=== PATIENT | female | born 1960 | race Caucasian/White ===

== ENCOUNTER → 2024-02-18 12:14 | Outpatient (REF) | payer BC, SELFPAY | LOC: HWRAD 12:14 | PROVIDERS: ATTENDING PHYSICIAN Family Medicine | DX: M81.0 Age-related osteoporosis without current pathological fracture (principal); Z12.31 Encounter for screening mammogram for malignant neoplasm of breast | CPT/HCPCS: 77063; 77067; 77080 ==

== ENCOUNTER 2024-06-27 16:13 | Emergency (ER) | payer BC, SELFPAY ==
[2024-06-27 16:18] VITALS: BP 160/94
--- NOTE | 2024-06-27 16:21 | ED.GENMED ---
ED Provider Triage
<Zeeshan Noel Jr., PA-C - Last Filed: 06/27/24 16:23>
-
Patient seen by provider in Triage?: Seen in Triage
Attestation: A medical screening examination has been initiated by a qualified medical provider. Based on the assessment performed at this time, it has been determined that an emergent medical condition may exist and the patient has been informed
that further medical evaluation and possible additional diagnostic testing may be needed.
HPI: Intermittent chest pain describes a pinching to her central chest over the past 4 days or so to mild associated nausea no vomiting no diaphoresis no shortness of breath associated. No known history of heart disease. Labs troponin chest x-ray
ordered for further assessment.
GENERAL: Alert , in no apparent distress
EYE: No visual abnormalities.
NECK: Trachea midline
ENT: No visible abnormalities.
LUNGS: No acute respiratory distress
NEUROLOGICAL: Alert and oriented
SKIN: Skin intact. No visible changes.
MUSCULOSKELETAL: Moving extremities normally
PSYCH: Normal and appropriate interaction.
This is a medical evaluation conducted in person to initiate diagnostic evaluation and provide initial therapeutics. Please see further documentation by the treating clinician.
History of Present Illness
<Zeeshan Noel Jr., PA-C - Last Filed: 06/27/24 16:23>
General
Chief Complaint: Chest Pain
Time Seen by Provider: 06/27/24 18:14
<Waqar Cedillo DO - Last Filed: 06/27/24 18:49>
General
Source: patient
Exam Limitations: none
History of Present Illness
History of Present Illness:
See MDM
Past History
<Zeeshan Noel Jr., PA-C - Last Filed: 06/27/24 16:23>
Past History
ED Past Medical History: Hypothyroidism and Psychiatric (A/D); Negative Asthma, HTN, Hypercholesterolemia or NIDDM
ED Past Surgical History: Negative None
Social History
Tobacco: Former smoker
Alcohol: Occasional
Personal:
Living: with family
Employment: Employed
<Waqar Cedillo, DO - Last Filed: 06/27/24 18:49>
Past History
ED Past Medical History: NIDDM
Phy Exam
<Waqar Cedillo, DO - Last Filed: 06/27/24 18:49>
Physical Exam
Physical Exam:
See MDM
Scores
<Waqar Cedillo, DO - Last Filed: 06/27/24 18:49>
Heart Score for Chest Pain Patients
STEMI patient?: No
History: Slightly or Non-Suspicious
ECG: Normal
Age: >45 - <65 years
Risk Factors: 1 or 2 Risk Factors
Troponin: </= Normal Limit
Heart Score for Chest Pain Patients: 2
Heart Score Risk: 2.5% MACE over next 6 weeks
Course
<Zeeshan Noel Jr., PA-C - Last Filed: 06/27/24 16:23>
Orders/Labs/Results
Orders:
Orders
06/27/24 16:14
EKG [Electrocardiogram (*1)] Urgent
Reason for Study: Chest Pain
EKG- Treatment ONCE
06/27/24 16:21
CR Chest - 2 Views Urgent
Comment:
Reason For Exam: cp
06/27/24 16:28
Complete Blood Count/With Diff Urgent
Comprehensive Metabolic Panel Urgent
Magnesium Urgent
Troponin I Urgent
Abnormal Lab Results
06/27/24
16:28
Absolute Monos (auto) 0.8 H 10^3/uL
(0.1-0.6)
Glucose 123 H mg/dl
(70-99)
06/27/24 16:28
06/27/24 16:28
Vital Signs
Initial and Last Documented VS:
Initial Vital Signs
Temp Pulse Resp BP Pulse Ox
98.1 F 73 20 160/94 98
06/27/24 16:18 06/27/24 16:18 06/27/24 16:18 06/27/24 16:18 06/27/24 16:18
Last Documented Vital Signs
Temp Pulse Resp BP Pulse Ox
98.1 F 65 20 149/91 97
06/27/24 16:18 06/27/24 17:43 06/27/24 16:18 06/27/24 17:43 06/27/24 17:43
<Waqar Cedillo, DO - Last Filed: 06/27/24 18:49>
Orders/Labs/Results
Orders:
Orders
06/27/24 16:14
EKG [Electrocardiogram (*1)] Urgent
Reason for Study: Chest Pain
EKG- Treatment ONCE
06/27/24 16:21
CR Chest - 2 Views Urgent
Comment:
Reason For Exam: cp
06/27/24 16:28
Complete Blood Count/With Diff Urgent
Comprehensive Metabolic Panel Urgent
Magnesium Urgent
Troponin I Urgent
Abnormal Lab Results
06/27/24
16:28
Absolute Monos (auto) 0.8 H 10^3/uL
(0.1-0.6)
Glucose 123 H mg/dl
(70-99)
06/27/24 16:28
06/27/24 16:28
Vital Signs
Initial and Last Documented VS:
Initial Vital Signs
Temp Pulse Resp BP Pulse Ox
98.1 F 73 20 160/94 98
06/27/24 16:18 06/27/24 16:18 06/27/24 16:18 06/27/24 16:18 06/27/24 16:18
Last Documented Vital Signs
Temp Pulse Resp BP Pulse Ox
98.1 F 65 20 149/91 97
06/27/24 16:18 06/27/24 17:43 06/27/24 16:18 06/27/24 17:43 06/27/24 17:43
<Waqar Cedillo, DO - Last Filed: 06/27/24 18:49>
MDM/Problems Addressed
Differential Diagnosis Includes:
HPI and MDM Narrative:
63-year-old female presenting for evaluation of a pinching sensation in her chest. This has been ongoing for the past 4 days or so. It was initially intermittent but now appears to be constant. It is not worse with exertion or food intake. Given
duration of symptoms, she called her PCP. She initially had an appointment to be seen in the office today but they called her back and suggested that she go to the emergency department. On exam, she is very well-appearing and nontoxic. Blood
work, chest x-ray and EKG done prior to my evaluation.
Troponin negative. EKG is nonischemic. Chest x-ray clear. Given duration of symptoms with normal troponin, doubt ACS. She has no tachycardia or hypoxia to suggest PE. Patient denies leg pain or swelling to suggest DVT
We discussed a negative workup and follow-up with PCP and discussed having her call the cardiology office as well
Physical exam
General: Well appearing and non-toxic
HEENT: protecting airway
Neck: appears supple
CV: No evidence of cyanosis. Regular rate and rhythm
Resp: No accessory muscle use. Lungs clear
Abd: Non-distended
Extremities: No deformities. No lower leg edema
Neuro: alert
Psych: Normal affect
Skin: Intact
Problems Addressed including Acute and Chronic Conditions affecting care:
1. Chest discomfort
Acuity: acute
Prognosis: stable
Details: EKG nonischemic. Troponin negative. Given duration of symptoms with a normal troponin, doubt ACS. Discussed follow-up with PCP and cardiology
Differential Diagnosis (but not limited to): Noncardiac chest pain, muscle spasm, GERD
Testing considered: D-dimer but she is neither tachycardic nor hypoxic and has no clinical signs of DVT
Drug therapy (if applicable): OTC meds, please see d/c instruction regarding Rx drugs
Amount and/or Complexity of Data Reviewed
Clinical info obtained from: Patient
External data reviewed: N/A
Labs I independently reviewed (but not limited to): Troponin normal
Radiology: X-ray independently reviewed: Chest x-ray clear
Pulse Ox: not hypoxic
EKG independently reviewed: Normal sinus rhythm, normal axis, no STEMI
Tool Maker Bench: N/A
Critical Care: N/A
Risk of Complication:
Social Determinants of health: Good social support
Discussed with other providers: N/A
Escalation of Care includes Admit/Obs: After being observed in the Emergency Department, pt stable for discharge.
Occasional wrong word or 'sound a like' substitutions may have occurred due to the inherent limitations of voice recognition software. Read the chart carefully and recognize, using context, where substitutions have occurred.
<Waqar Cedillo DO - Last Filed: 06/27/24 18:49>
*Critical Care Note
Total Time (30-74mins, 75-104mins- exclusive of procedures): Not Applicable
ED Attending Note
<Zeeshan Noel Jr., PA-C - Last Filed: 06/27/24 16:23>
-
Portions of this chart may have been created with voice recognition software.� Occasional wrong word or��sound alike� substitutions may have occurred due to the inherent limitations of voice recognition software.
Discharge Plan
Departure
Patient Disposition: Home (Routine Discharge)
Date of Disposition: 06/27/24
Time of Disposition: 18:48
Patient with high blood pressure during this ER visit?: Yes
Discharge Problem:
Chest discomfort
Instructions: Chest Pain PCP Follow Up
Prescriptions:
No Action
venlafaxine 75 MG capsule,extended release 24hr
75 mg PO DAILY
levothyroxine 50 MCG tablet
50 mcg PO DAILY
acyclovir [Zovirax] 400 MG tablet
400 mg PO .5X DAY PRN PRN (Reason: cold sores)
lorazepam 0.5 MG tablet
0.5 mg PO DAILYPRN PRN (Reason: anxiety)
ketoconazole 1 APPLIC cream
1 applic topical DAILY
Patient Comments:
01/16/17 Per patient she picked up but has not used yet. For 7 days
cholecalciferol (vitamin D3) 1,000 UNITS tablet
1,000 units PO DAILY
multivitamin with folic acid [Tab-A-Rudi] 1 TABLET tablet
1 tab PO DAILY
vancomycin 250 MG/5 ML recon soln
250 mg PO Q6 Qty: 10 0RF
Lactobac 2-Bifido 1-S. therm [High Potency Probiotic] 1 CAP capsule
2 cap PO DAILY Qty: 10 0RF
cyclobenzaprine 10 MG tablet
10 mg PO TIDPRN PRN (Reason: spasm) Qty: 9 0RF
prednisone 10 MG tablet
10 mg PO .TAPER Qty: 30 0RF
Rx Instructions:
Take 40mg daily x3days, 30mg daily x3days,
20mg daily x3days, 10mg daily x3days.
hydrocodone-acetaminophen 1 TABLET tablet
1 tab PO Q4HPRN PRN (Reason: pain) Qty: 8 0RF
Referrals:
Jerome Murdock Jr., DO [Family Provider] -
Activity Restrictions/Additional Instructions:
Please return for any worsening symptoms.
You may return at any time if you have further concerns.
Please follow up with your doctor at the first available appointment, preferably this week.
Thank you for choosing [facility].
Interventions
Interventions:
*Risk Screen - Suicide Last Done: 06/27/24 16:18
*General Assessment Last Done: 06/27/24 16:18
*Neglect/Abuse Screening Last Done: 06/27/24 16:18
ED- Cardiac Assessment Last Done: 06/27/24 17:50
Discharge Date and Time
Print Language: ICELANDIC
[2024-06-27 16:34] LABS: % Eosinophils 2.7 % (0-6); % Immature Granulocytes 0.5 % (0-0.5); % Lymphocytes 22.5 % (20.5-51.1); % Monocytes 9.3 % (1.7-9.3); Absolute Basophils 0.1 10^3/uL (0-0.2); Absolute Eosinophils 0.2 10^3/uL (0-0.7); Absolute Lymphocytes 1.8 10^3/uL (1.2-3.4); Absolute Monocytes 0.8 10^3/uL (0.1-0.6); Absolute Neutrophils 5.2 10^3/uL (1.4-6.5); Hematocrit 41.8 % (37.0-47.0); Hemoglobin 14.3 g/dL (12.0-16.0); Mean Corp Hgb Conc. 34.2 g/dL (33.0-37.0); Mean Corpuscular Hgb 30.6 pg (27.0-31.0); Mean Corpuscular Volume 89.5 fL (81.0-99.0); Nucleated Red Blood Cells % 0 %; Platelet Count 296 10^3/uL (130-400); Red Blood Cell Count 4.67 10^6/uL (4.20-5.40); Red Cell Dist. Width 12.4 % (11.5-14.5); White Blood Cell Count 8.2 10^3/uL (4.8-10.8)
[2024-06-27 16:52] LABS: ALT (SGPT) 28 U/L (0-35); AST (SGOT) 29 U/L (14-36); Alkaline Phosphatase 49 U/L (38-126); Blood Urea Nitrogen 17 mg/dl (7-17); Carbon Dioxide 30 mmol/L (22-30); Chloride 100 mmol/L (98-107); Glucose 123 mg/dl (70-99); Magnesium 2.1 mg/dl (1.6-2.3); Potassium 3.7 mmol/L (3.5-5.1); Sodium 140 mmol/L (135-145); Total Bilirubin 0.3 mg/dl (0.2-1.3); Total Protein 7.4 g/dl (6.3-8.2); eGFR > 60.00
[2024-06-27 16:58] LABS: Troponin I < 0.012 ng/ml
[2024-06-27 17:43] VITALS: BP 149/91
== END 2024-06-27 18:56 | disposition home or self-care (01) ==
LOC: EMR 16:13
PROVIDERS: Physician Assistant; EMERGENCY PHYSICIAN Student in an Organized Health Care Education/Training Program; FAMILY PHYSICIAN Family Medicine
DX: R07.89 Other chest pain (principal); E03.9 Hypothyroidism, unspecified; Z87.891 Personal history of nicotine dependence
CPT/HCPCS: 99285; 71046; 80053; 83735; 84484; 85025; 93005

== ENCOUNTER → 2025-02-23 12:46 | Outpatient (REF) | payer BC, SELFPAY | LOC: WDC 12:46 | PROVIDERS: ATTENDING PHYSICIAN Family Medicine | DX: Z12.31 Encounter for screening mammogram for malignant neoplasm of breast (principal) | CPT/HCPCS: 77063; 77067 ==

== ENCOUNTER → 2025-03-09 09:22 | Outpatient (REF) | payer BC, SELFPAY | LOC: WDC 09:22 | PROVIDERS: ATTENDING PHYSICIAN Nurse Practitioner Adult Health | DX: N63.25 Unspecified lump in the left breast, overlapping quadrants (principal) | CPT/HCPCS: 76642 ==

== ENCOUNTER → 2025-03-14 08:43 | Outpatient (REF) | payer BC, SELFPAY ==
--- NOTE | 2025-03-14 14:19 | OID.BR.INTR ---
[facility] Navigator - Initial
- -
Date of Contact: 03/14/25
Met with patient. Patient given written information on navigator service available at [facility]. Will follow up as needed per protocol.
== END ==
LOC: WDC 08:43
PROVIDERS: ATTENDING PHYSICIAN Nurse Practitioner Adult Health
DX: N63.22 Unspecified lump in the left breast, upper inner quadrant (principal)
CPT/HCPCS: 19083; 88305; 88341; 88342; 88360; A4648

== ENCOUNTER → 2025-03-17 11:50 | Outpatient (REF) | payer BC, SELFPAY | LOC: RAD 11:50 | PROVIDERS: ATTENDING PHYSICIAN Nurse Practitioner Adult Health | DX: S99.921A Unspecified injury of right foot, initial encounter (principal); M79.671 Pain in right foot | CPT/HCPCS: 73610; 73630 ==

== ENCOUNTER → 2025-03-23 14:45 | Outpatient (REF) | payer BC, SELFPAY | LOC: WDC 14:45 | PROVIDERS: ATTENDING PHYSICIAN Surgery; FAMILY PHYSICIAN Family Medicine | DX: R92.2 Inconclusive mammogram (principal) | CPT/HCPCS: 76641 ==

== ENCOUNTER → 2025-04-09 11:30 | Outpatient (REF) | payer BC, SELFPAY | LOC: WDC 11:30 | PROVIDERS: ATTENDING PHYSICIAN Surgery | DX: N63.10 Unspecified lump in the right breast, unspecified quadrant (principal) | CPT/HCPCS: 19083; 88305; A4648 ==

== ENCOUNTER → 2025-04-16 08:31 | Outpatient (REF) | payer BC, SELFPAY | LOC: WDC 08:31 | PROVIDERS: ATTENDING PHYSICIAN Surgery; FAMILY PHYSICIAN Family Medicine | DX: C50.412 Malignant neoplasm of upper-outer quadrant of left female breast (principal) | CPT/HCPCS: 19285; A4648 ==

== ENCOUNTER 2025-04-17 06:22 | Day surgery (SDC) | payer BC, SELFPAY ==
[2025-04-10 08:50] LABS: Hematocrit 41.8 % (37.0-47.0); Hemoglobin 14.1 g/dL (12.0-16.0); Mean Corp Hgb Conc. 33.7 g/dL (33.0-37.0); Mean Corpuscular Volume 89.3 fL (81.0-99.0); Platelet Count 277 10^3/uL (130-400); Red Cell Dist. Width 13.2 % (11.5-14.5)
[2025-04-10 09:37] LABS: ALT (SGPT) 42 U/L (0-35); AST (SGOT) 41 U/L (14-36); Albumin 4.7 g/dl (3.5-5.0); Alkaline Phosphatase 56 U/L (38-126); Blood Urea Nitrogen 16 mg/dl (7-17); Calcium 9.7 mg/dl (8.4-10.2); Carbon Dioxide 28 mmol/L (22-30); Chloride 105 mmol/L (98-107); Glucose 127 mg/dl (70-99); Potassium 4.6 mmol/L (3.5-5.1); Sodium 140 mmol/L (135-145); Total Protein 7.2 g/dl (6.3-8.2); eGFR > 60.00
[2025-04-10 09:45] LABS: Prealbumin (Transthyretin) 34.1 mg/dl (17.6-36.0)
[2025-04-10 09:56] LABS: Vitamin D, 25-OH*** 45.6 ng/mL (30-80)
[2025-04-10 14:12] VITALS: BMI 29.0
[2025-04-17 09:00] VITALS: BMI 29.0
[2025-04-17 09:29] VITALS: BP 136/86
[2025-04-17 09:30] VITALS: BMI 29.0
[2025-04-17] MEDS: TYLENOL 1000 MG PO (09:40)
[2025-04-17] MEDS: NORMOSOL-R/PLASMALYTE-A 1000 IV (10:03)
[2025-04-17 10:05] LABS: Glucose - Point of Care 100 mg/dl (70-99)
[2025-04-17] MEDS: LOVENOX 40 MG SC (10:46)
[2025-04-17 12:36] VITALS: BP 97/49
== END 2025-04-17 13:30 | disposition home or self-care (01) ==
LOC: SDS 06:22
PROVIDERS: ATTENDING PHYSICIAN Surgery; FAMILY PHYSICIAN Nurse Practitioner Adult Health
DX: C50.412 Malignant neoplasm of upper-outer quadrant of left female breast (principal); Z17.0 Estrogen receptor positive status [ER+]
CPT/HCPCS: 38525; 36415; 38792; 76098; 76942; 80053; 82306; 82962; 84134; 85027; 88305; 88307; 88341; 88342; 88360; 93005; A4648; A9541